=== PATIENT | male | born 1955 | race Caucasian/White ===

== ENCOUNTER → 2018-03-14 | Outpatient (CLI) | payer OTHER | LOC: M WUC 09:19 | DX: R07.9 Chest pain, unspecified (principal) | CPT/HCPCS: 71046 ==

== ENCOUNTER 2019-04-28 21:27 | Observation (INO) | payer BC ==
[~2019-04-28] VITALS: Ht 182.9 cm; Wt 84.1 kg
[2019-04-28 22:28] LABS: BASO % 0.4 % (0.0-1.0); EOS % 0.1 % (0.0-3.0); HEMATOCRIT 46.3 % (42.0-52.0); HEMOGLOBIN 15.6 g/dl (13.5-17.5); LYMPH # 0.9 10^3/uL (1.5-5.0); LYMPH % 11.9 % (24.0-44.0); MEAN CORPUSCULAR HEMOGLOBIN 32.1 pg (27.0-33.0); MEAN CORPUSCULAR HGB CONC 33.7 g/dl (32.0-36.5); MEAN CORPUSCULAR VOLUME 95.3 fl (80.0-96.0); MONO # 0.5 10^3/uL (0.0-0.8); MONO % 6.5 % (0.0-5.0); NEUTROPHILS # 6.1 10^3/uL (1.5-8.5); NEUTROPHILS % 80.6 % (36.0-66.0); PLATELET COUNT, AUTOMATED 137 10^3/uL (150-450); RED BLOOD COUNT 4.86 10^6/uL (4.30-6.10); WHITE BLOOD COUNT 7.5 10^3/uL (4.0-10.0)
--- NOTE | 2019-04-28 22:35 | REPVR ---
PROCEDURE INFORMATION: Exam: CT Head Without Contrast Exam date and time: 04/28/2019 10:22 PM Clinical history: 63 years old, male; Syncope and collapse TECHNIQUE: Imaging protocol: Computed tomography of the head without contrast. Radiation optimization: All CT scans at this facility use at least one of these dose optimization techniques: automated exposure control; mA and/or kV adjustment per patient size (includes targeted exams where dose is matched to clinical indication); or iterative reconstruction. COMPARISON: No relevant prior studies available. FINDINGS: Brain: Normal. No hemorrhage. Unremarkable white matter. No mass effect. Ventricles: Normal. No ventriculomegaly. Bones/joints: Unremarkable. No acute fracture. Sinuses: Visualized sinuses are unremarkable. No fluid levels. Mastoid air cells: Visualized mastoid air cells are well aerated. Soft tissues: Unremarkable. IMPRESSION: Negative noncontrast head CT. Electronically signed by: Zay Robert On 04/28/2019 22:35:25 PM
[2019-04-28 22:54] LABS: ALBUMIN 3.9 GM/DL (3.2-5.2); ALT/SGPT 30 U/L (12-78); BILIRUBIN,TOTAL 2.8 MG/DL (0.2-1.0); BLOOD UREA NITROGEN 20 MG/DL (7-18); CALCIUM LEVEL 8.6 MG/DL (8.8-10.2); CARBON DIOXIDE LEVEL 29 MEQ/L (21-32); CHLORIDE LEVEL 102 MEQ/L (98-107); CK-MB VALUE MASS < 1.0 NG/ML (<3.6); CPK CREATINE PHOSPHOKINASE 102 U/L (39-308); CREATININE FOR GFR 1.36 MG/DL (0.70-1.30); GLOMERULAR FILTRATION RATE 56.2 (>49); GLUCOSE, FASTING 124 MG/DL (70-100); MAGNESIUM LEVEL 2.2 MG/DL (1.8-2.4); MB/CK RELATIVE INDEX 0.98 (< OR =4); POTASSIUM SERUM 5.3 MEQ/L (3.5-5.1); SODIUM LEVEL 137 MEQ/L (136-145); TOTAL PROTEIN 7.5 GM/DL (6.4-8.2); TROPONIN I < 0.02 NG/ML (< 0.10)
[2019-04-28] MEDS ORDERED: ACETAMINOPHEN TAB 650MG DOSE (2X325MG) PO PRN (23:15)
--- NOTE | 2019-04-28 23:16 | HPEPDOC ---
[facility] Medical History & Physical Date of Admission Apr 28, 2019 Date of Service: Apr 28, 2019 Attending Physician: AL MANZANO MD History and Physical TIME OF SERVICE: 1155PM CHIEF COMPLAINT: Loss of consciousness HISTORY OF PRESENT ILLNESS: This is 63-year-old male who drove himself to the ED after an episode where he lost consciousness; prior to the event he was eating dinner with his , had palpitations and then suddenly found himself on the ground. He did not hit his head or hurt any other part of his body because his caught him before he hit the ground. He denies having chest pain, shortness of breath, fevers, chills, change in appetite or any other complaint recently. He has had a cough for several months, which he thinks is due to postnasal drip. Per discussion with the ED provider's, one of the EKG showed bigeminy; Dr. Meier was contacted and recommended admission for observation. REVIEW OF SYSTEMS: 12 point review of systems negative except as listed in HPI PAST MEDICAL/ SURGICAL HISTORY: Per patient history bigeminy SOCIAL HISTORY: Does not smoke. He does not drink. He lives with his FAMILY HISTORY: His father has left bundle branch block. The patient is not sure of the cause. ALLERGIES: Please see below. HOME MEDICATIONS: Please see below. PHYSICAL EXAMINATION: VITAL SIGNS: Please see below. GENERAL APPEARANCE: Well-nourished, well-developed, appears anxious HEENT: normocephalic, atraumatic, mucous membranes moist and pink CARDIOVASCULAR: regular rate and rhythm. No murmurs, rubs or gallops LUNGS: Clear auscultation bilaterally on room air ABDOMEN: bowel sounds, are present the abdomen is soft and nontender on palpation MUSCULOSKELETAL: Range of motion is intact in all 4 extremities INTEGUMENT: no rash, no lesions NEUROLOGICAL: cranial nerves II-12 are grossly intact. Speech is not dysarthric PSYCHIATRIC: Alert and oriented, able to understand and follow commands LABORATORY DATA: See below. IMAGING: CT of the head is unremarkable. Chest x-ray appears unremarkable but the final read is pending ASSESSMENT: Mr. Navarrete is a 63 male with no significant past medical history who who will be admitted for evaluation after having a syncopal episode. PLAN: 1. Syncope. Possibly due to bigeminy CT of the head unremarkable EKGs were reviewed: #1 NSR w a heart rate of 96 and PVCs, #2 ventricular bigeminy Trop was wnl BNP was marginally elevated Plan : Admit to medical floor/telemetry/fall precautions/follow-up orthostats /Follow-up with Dr. Meier in the morning 2. LEXII vs CKD Creatinine is 1.36 date. Previous creatinine in 2014 was 1 Plan: IV fluids, follow-up BMP 3. Hypokalemia. Cause TBD Plan: Replete potassium/ f/u magnesium 4. Hyperglycemia Plan: Follow-up A1c 5. Possible HTN Plan: he can f/u w his PCP for referral to have an ambulator BP monitor placed prior to starting medication DVT prophylaxis with SCDs. Disposition likely home after less than 2 midnight's stay Vital Signs Vital Signs Date Time Temp Pulse Resp B/P (MAP) Pulse Ox O2 Delivery O2 Flow Rate FiO2 04/28/19 22:42 90 20 140/88 (105) 99 Room Air 04/28/19 21:27 96.8 Laboratory Data Labs 24H Laboratory Tests 2 04/28/19 22:01: Immature Granulocyte % (Auto) 0.5, Neutrophils (%) (Auto) 80.6H, Lymphocytes (%) (Auto) 11.9L, Monocytes (%) (Auto) 6.5H, Eosinophils (%) (Auto) 0.1, Basophils (%) (Auto) 0.4, Neutrophils # (Auto) 6.1, Lymphocytes # (Auto) 0.9L, Monocytes # (Auto) 0.5, Eosinophils # (Auto) 0.0, Basophils # (Auto) 0.0, Nucleated Red Blood Cells % (auto) 0.0, Anion Gap 6L, Glomerular Filtration Rate 56.2, Calcium Level 8.6L, Magnesium Level 2.2, Total Bilirubin 2.8H, Aspartate Amino Transf (AST/SGOT) 32, Alanine Aminotransferase (ALT/SGPT) 30, Alkaline Phosphatase 45, Total Creatine Kinase 102, Creatine Kinase MB < 1.0, Creatine Kinase MB Relative Index 0.98, Troponin I < 0.02, Total Protein 7.5, Albumin 3.9, Albumin/Globulin Ratio 1.08 CBC/BMP Laboratory Tests 04/28/19 22:01 Home Medications No Active Prescriptions or Reported Meds Allergies Coded Allergies: No Known Allergies (Unverified , 04/28/19) A-FIB/CHADSVASC A-FIB History Current/History of A-Fib/PAF?: No Current PO Anticoag Therapy: No AL MANZANO MD Apr 28, 2019 23:16
[2019-04-28 23:39] LABS: NT-PRO BNP 131 PG/ML (<125)
[2019-04-29] MEDS ORDERED: POTASSIUM CHLORIDE 10 MEQ SR TABLET PO ONE (01:15)
[2019-04-29] MEDS ORDERED: NS 1,000 ML IV ONE (02:00)
[2019-04-29 06:27] LABS: HEMOGLOBIN 14.2 g/dl (13.5-17.5); MEAN CORPUSCULAR HEMOGLOBIN 32.1 pg (27.0-33.0); MEAN CORPUSCULAR HGB CONC 33.8 g/dl (32.0-36.5); PLATELET COUNT, AUTOMATED 120 10^3/uL (150-450); RED BLOOD COUNT 4.42 10^6/uL (4.30-6.10)
[2019-04-29 06:40] LABS: HEMOGLOBIN A1c 5.4 %
[2019-04-29 06:53] LABS: BLOOD UREA NITROGEN 16 MG/DL (7-18); CALCIUM LEVEL 8.1 MG/DL (8.8-10.2); CARBON DIOXIDE LEVEL 28 MEQ/L (21-32); CHLORIDE LEVEL 110 MEQ/L (98-107); CREATININE FOR GFR 1.11 MG/DL (0.70-1.30); GLOMERULAR FILTRATION RATE > 60.0 (>49); GLUCOSE, FASTING 110 MG/DL (70-100); POTASSIUM SERUM 4.4 MEQ/L (3.5-5.1); SODIUM LEVEL 142 MEQ/L (136-145)
--- NOTE | 2019-04-29 08:21 | REP ---
Portable chest x-ray: Sitting AP view. History: Syncope. Comparison study: March 14, 2018. Findings: The lungs are exposed at a somewhat lesser level of inspiration. There is minimal subsegmental plate-like atelectasis in the left base. Lung king are otherwise clear. Cardiomediastinal silhouette is unremarkable. Pulmonary vasculature is not increased. The pleural angles are sharp. No significant bony abnormality is seen. Impression: No acute disease. Minimal discoid atelectasis left base. Electronically Signed by Bob Daley MD 04/29/2019 08:12 A
[2019-04-29 08:45] VITALS: BP_SYST 125; BP_SYST 129; BP_SYST 136; BP_DIAS 77; BP_DIAS 81; BP_DIAS 88
--- NOTE | 2019-04-29 11:15 | DS.PDOC ---
Discharge Summary General Date of Admission Apr 28, 2019 at 21:28 Date of Discharge 04/29/19 Discharge Summary ADMITTING DIAGNOSES: 1. syncope DISCHARGE DIAGNOSES: 1. syncope COMPLICATIONS/CHIEF COMPLAINT: Syncope, Bigeminy. HISTORY OF PRESENT ILLNESS: "63-year-old male who drove himself to the ED after an episode where he lost consciousness; prior to the event. He was eating dinner with his . He experienced some palpitations and then suddenly he found himself on the ground. He did not hit his head or hurt any other part of his body. His caught him before he hit the ground. He denies having chest pain, shortness of breath, fevers, chills, change in appetite or any other complaint recently. He has had a cough for several months, which he thinks is due to postnasal drip. Per discussion with the ED provider's, one of the EKG showed bigeminy; Dr. Meier was contacted and recommended admission for observation." HOSPITAL COURSE: 63 y/o M was admitted for observation for syncope. Throughout hospital stay pt remained asymptomatic and there was no significant event on telemetry. Pt was evaluated by cardiology service and recommendations were o/p f/u. Exact etiology of syncope was not clear. EKG was NSR with PVCs. CT head did not show any acute pathology Pt was seen and examined at bedside on day of discharge. Pt stated that he is feeling fine and did not have any complaint. Pt was clinically and vitally stable at the time of discharge. 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 DISCHARGE MEDICATIONS: Please see below. PHYSICAL EXAMINATION ON DISCHARGE: VITAL SIGNS: Please see below. GENERAL: comfortable HEENT: oral mucosa moist CARDIOVASCULAR EXAMINATION: regular rate and rhythm RESPIRATORY EXAMINATION: clear to auscultation ABDOMINAL EXAMINATION: soft, non tender EXTREMITIES:no edema NEUROLOGICAL EXAMINATION: no focal deficit LABORATORY DATA: Please see below. ACTIVITY: [As tolerated]. Vital Signs/I&Os Vital Signs Date Time Temp Pulse Resp B/P (MAP) Pulse Ox O2 Delivery O2 Flow Rate FiO2 04/29/19 08:45 88 136/77 (96) 96 129/81 (97) 91 125/88 (100) 04/29/19 04:45 96.6 23 99 Room Air Laboratory Data Labs 24H Laboratory Tests 2 04/28/19 22:01: Immature Granulocyte % (Auto) 0.5, Neutrophils (%) (Auto) 80.6H, Lymphocytes (%) (Auto) 11.9L, Monocytes (%) (Auto) 6.5H, Eosinophils (%) (Auto) 0.1, Basophils (%) (Auto) 0.4, Neutrophils # (Auto) 6.1, Lymphocytes # (Auto) 0.9L, Monocytes # (Auto) 0.5, Eosinophils # (Auto) 0.0, Basophils # (Auto) 0.0, Nucleated Red Blood Cells % (auto) 0.0, Anion Gap 6L, Glomerular Filtration Rate 56.2, Calcium Level 8.6L, Magnesium Level 2.2, Total Bilirubin 2.8H, Aspartate Amino Transf (AST/SGOT) 32, Alanine Aminotransferase (ALT/SGPT) 30, Alkaline Phosphatase 45, Total Creatine Kinase 102, Creatine Kinase MB < 1.0, Creatine Kinase MB Relative Index 0.98, Troponin I < 0.02, QA-Ifl-G-Type Natriuretic Peptide 131H, Total Protein 7.5, Albumin 3.9, Albumin/Globulin Ratio 1.08 04/29/19 01:42: Magnesium Level 2.3 04/29/19 06:13: Nucleated Red Blood Cells % (auto) 0.0, Anion Gap 4L, Glomerular Filtration Rate > 60.0, Calcium Level 8.1L, Estimated Mean Plasma Glucose 108, Hemoglobin A1c 5.4 CBC/BMP Laboratory Tests 04/28/19 22:01 04/29/19 06:13 Discharge Medications No Active Prescriptions or Reported Meds Allergies Coded Allergies: No Known Allergies (Unverified , 04/28/19) SYL ELIAS MD Apr 29, 2019 11:15
--- NOTE | 2019-04-29 12:10 | CR ---
DATE OF CONSULTATION: 04/29/2019 INDICATION: Syncope. HISTORY OF PRESENT ILLNESS: Mr. Navarrete is known to me, is a 63-year-old man, who has no prior significant history. He presented to emergency room by ambulance after he suffered syncopal event at home. He came home after a fairly stressful day. Was apparently eating dinner and talking to his daughter on the phone while sitting on a stool. He suddenly started feeling unwell, lightheaded, and within about 30 seconds lost consciousness. He did not fall all the way down because his was able to catch him. She reports that he was unconscious for about 5 minutes, but he was breathing spontaneously. She called 9-1-1, and on their arrival he was already alert and oriented. He was brought to hospital. The vital signs were stable. ECG reveals presence of sinus rhythm with premature ventricular contractions (PVCs) of RVOT origin, including brief episodes of ventricular bigeminy, but no ventricular tachycardia, no pauses. He is feeling well at this point. The patient was seen in my office in February of this year after PVCs were identified by physical exam and later ECG by his primary care physician. I performed exercise stress test that revealed no evidence for exercise-induced ventricular tachycardia and demonstrated excellent exertional tolerance. He also had an echocardiogram that revealed low normal mildly-reduced left ventricular systolic function, I estimated his ejection fraction (EF) approximately 50%. He has been otherwise active and asymptomatic. He did have two prior near syncopal events, but both of them looked decidedly not worrisome. One of them occurred when he was getting out of hot tub and one of them when he was taking a hot shower. PAST MEDICAL HISTORY: Essentially negative. SURGICAL HISTORY: Negative. FAMILY HISTORY: His father has left bundle branch block and congestive heart failure, I suspect most likely cardiomyopathy. No history of sudden cardiac . OUTPATIENT MEDICATIONS: None. ALLERGIES: No allergies. On the physical exam, the patient is a man who appears younger than his calendar age, alert and oriented, in no distress. Blood pressure 129/81. His orthostatic signs are negative. He is afebrile. Saturation 99% on room air. His weight is 84 kg. JVP is not high. No goiter. Lungs are clear. Heart exam, regular rhythm with ectopy. No gallop, rub, or murmur. Abdomen is soft, nontender. Extremities are free of edema. Laboratories reveal normal CBC, but for mild thrombocytopenia 120,000, and basic metabolic panel, sodium 142, potassium 4.4, BUN is 16, creatinine 1.1 and glucose 108. ECG reveals presence of sinus rhythm with essentially normal tracing with some bigeminal PVCs at times on monitor but not on ECG of RVOT origin. ASSESSMENT/PLAN: Mr. Navarrete is a 63-year-old man who suffered a syncopal event yesterday. By description, the syncopal event is not consistent with neurocardiogenic syncope, and we have to assume more sinister etiologies. He was recently evaluated for premature ventricular contractions (PVCs) without prior history of syncope. An echocardiogram revealed low normal or possibly mildly reduced left ventricular systolic function, and he had no exercise-induced VT and good exertional tolerance. At this point, I have to consider possibility that this syncopal event that he had was due to ventricular tachycardia. Even though the probability is low, it certainly would be the most sinister etiology. I contacted Dr. Jarrod Boyer in [facility] in [place] because, in my opinion, he should have electrophysiology study. He agrees with me, and he will try to arrange the procedure as soon as possible. In the interim, I suggested that the patient tries to avoid driving, and he should promptly report any possible recurrence. I do not believe that we should introduce any new medications. MARLIN
--- NOTE | 2019-04-30 12:00 | ECGEPIP ---
[facility] - ED Test Date: 2019-04-28 Pat Name: JARROD ALMENDAREZ Department: Room: 0103 Gender: Male Telepathist: : [id number] Requested By: LUIS López Order Number: [id number] Reading MD: Tonya Zepeda Measurements Intervals [place] Rate: 96 P: 62 MN: 195 QRS: -6 QRSD: 104 T: 45 QT: 382 QTc: 483 Interpretive Statements SINUS RHYTHM WITH FREQUENT VENTRICULAR PREMATURE COMPLEXES ABNORMAL RHYTHM ECG NSTTW abnormalities NO PRIOR Electronically Signed on 04-30-2019 12:00:08 EST by Tonya Zepeda
== END 2019-04-29 11:43 | disposition home or self-care (01) ==
LOC: M ED 21:27 → M ED INP 21:28 → M ICU 04-29 08:07
PROVIDERS: ADMIT Internal Medicine; ATTEND Internal Medicine
DX: R55 Syncope and collapse (principal); I49.8 Other specified cardiac arrhythmias; E87.6 Hypokalemia; R73.9 Hyperglycemia, unspecified; R03.0 Elevated blood-pressure reading, without diagnosis of hypertension; D69.6 Thrombocytopenia, unspecified; I49.3 Ventricular premature depolarization; Z82.49 Family history of ischemic heart disease and other diseases of the circulatory system